=== PATIENT | female | born 1970 | race Two or more races ===

== ENCOUNTER 2017-05-11 15:35 | Outpatient (CLI) | payer OTHER | END 2017-05-11 15:39 | disposition home or self-care (01) | LOC: MAMO-SONO 15:35 | DX: Z12.31 Encounter for screening mammogram for malignant neoplasm of breast (principal) ==

== ENCOUNTER 2017-05-11 15:48 | Outpatient (CLI) | payer OTHER | END 2017-05-11 15:57 | disposition home or self-care (01) | LOC: RAD 15:48 | DX: J45.909 Unspecified asthma, uncomplicated (principal); J32.9 Chronic sinusitis, unspecified ==

== ENCOUNTER 2019-05-11 15:41 | Emergency (ER) | payer OTHER ==
[~2019-05-11] VITALS: Ht 162.6 cm; Wt 86.2 kg
[2019-05-11] MEDS ORDERED: DOLOGEN CAPLET1 EACH PO (20:29)
[2019-05-11] MEDS ORDERED: TUSNEL LIQUID178 ML PO (20:29)
[2019-05-11] MEDS ORDERED: CLARITIN10 MG PO (20:29)
== END 2019-05-11 20:38 | disposition home or self-care (01) ==
LOC: ER 15:41 → EMR PED 15:41 → ER 16:39
DX: B34.9 Viral infection, unspecified (principal)

== ENCOUNTER 2020-12-25 11:33 | Outpatient (CLI) | payer OTHER ==
[~2020-12-25 11:33] MED LIST: CLARITIN10 MG PO; DOLOGEN CAPLET1 EACH PO; TUSNEL LIQUID178 ML PO
== END 2020-12-25 11:43 | disposition home or self-care (01) ==
LOC: RAD 11:33
PROVIDERS: ATTEND Physical Medicine & Rehabilitation
DX: M54.59 Other low back pain (principal); M25.551 Pain in right hip; M25.78 Osteophyte, vertebrae